=== PATIENT | male | born 1960 | race Hispanic/Latino ===

== ENCOUNTER → 2017-10-06 | Outpatient (CLI) | payer OTHER, MEDICARE ==
[~2017-10-06] MED LIST: GADOBENATE DIMEGLUMINE 20 ML IV ONE
== END ==
LOC: RAH 09:34
PROVIDERS: ATTEND Otolaryngology Plastic Surgery within the Head & Neck
DX: H70.91 Unspecified mastoiditis, right ear (principal); H74.8X3 Other specified disorders of middle ear and mastoid, bilateral; H90.41 Sensorineural hearing loss, unilateral, right ear, with unrestricted hearing on the contralateral side
CPT/HCPCS: 70553 ×2; A9577